=== PATIENT | male | born 1995 | race Caucasian/White ===

== ENCOUNTER 2019-02-26 18:19 | Emergency (ER) | payer OTHER ==
--- NOTE | 2019-02-26 19:36 | XRAY Report ---
Reason: R knee pain Procedure Date: 02/26/2019 Accession Number: [id number] / [id number] Procedure: XR - Knee 4 View RT CPT Code: FULL RESULT: EXAM: RIGHT KNEE RADIOGRAPHY EXAM DATE: 02/26/2019 07:17 PM. CLINICAL HISTORY: Right knee pain. COMPARISON: None. TECHNIQUE: 4 views. FINDINGS: Bones: Normal. No fracture or bone lesion. Joints: Normal. No effusion. No subluxation. Soft Tissues: Normal. No soft tissue swelling. IMPRESSION: Normal knee radiography. [facility]
[2019-02-26] MEDS ORDERED: IBUPROFEN 800 MG TABLET PO STA (20:36)
--- NOTE | 2019-02-26 20:38 | ED Physician Documentation ---
PD HPI LOWER EXT INJURY - Stated complaint Stated Complaint: R KNEE PX - Chief complaint Chief Complaint: Ext Problem - History obtained from History obtained from: Patient - History of Present Illness PD HPI LOW EXT INJURY LOCATION: Right, Knee Type of injury: Fall, Twist Where injury occurred: Street Timing - onset: How many days ago (2) Timing - duration: Days (2) Timing - details: Gradual onset Pain level max: 7 Pain level now: 6 Improved by: Rest, Ice, Immobilization Worsened by: Moving, Palpating Associated symptoms: Swelling. No: Weakness, Numbness, Tingling Contributing factors: No: Anticoagulated Recently seen: Not recently seen - Additional information Additional information: 23-year-old male with a history of patellar dislocations. States stepped in a pothole this weekend and right knee has been hurting ever since. Worse with walking, better with rest Review of Systems Constitutional: denies: Fever Skin: denies: Rash Musculoskeletal: denies: Neck pain, Back pain Neurologic: denies: Head injury PD PAST MEDICAL HISTORY - Past Medical History Past Medical History: No - Past Surgical History Past Surgical History: No - Present Medications Home Medications: Ambulatory Orders Medication Instructions Recorded Confirmed Ibuprofen [Motrin] 800 mg PO Q8H PRN #30 tablet 02/26/19 - Allergies Allergies/Adverse Reactions: Allergies Allergy/AdvReac Type Severity Reaction Status Date / Time Penicillins Allergy Hives Verified 02/26/19 18:35 - Social History Does the pt smoke?: No Smoking Status: Never smoker Does the pt drink ETOH?: Yes Does the pt have substance abuse?: No - Immunizations Immunizations are current?: Yes Immunizations: TDAP current <10years - POLST Patient has POLST: No PD ED PE NORMAL - Vitals Vital signs reviewed: Yes - General General: Alert and oriented X 3, No acute distress - Derm Derm: Warm and dry - Extremities Extremities: Other (R knee - Mild lateral knee tenderness. Mild LCL laxity. MCL, ACL, PCL intact. Unable to tolerate meniscus testing. Mild effusion. Neurovascular intact) - Neuro Neuro: Alert and oriented X 3 Results - Vitals Vitals: Oxygen O2 Source Room air - Rads (name of study) R knee xray Radiology: Prelim report reviewed, EMP read contemporaneously, See rad report (normal knee) PD MEDICAL DECISION MAKING - ED course Complexity details: reviewed results, re-evaluated patient, considered differential, d/w patient ED course: 23-year-old male with a right knee sprain. Placed in an articulating knee brace and given crutches. We will follow-up with PCP for further care. No acute findings on x-ray. Patient counseled regarding signs and symptoms for which I believe and urgent re-evaluation would be necessary. Patient with good understanding of and agreement to plan and is comfortable going home at this time This document was made in part using voice recognition software. While efforts are made to proofread this document, sound alike and grammatical errors may occur. Departure - Departure Disposition: Home, Self Care Clinical Impression: Right knee sprain Qualifiers: Encounter type: initial encounter Involved ligament of knee: unspecified ligament Qualified Code(s): S83.91XA - Sprain of unspecified site of right knee, initial encounter Knee LCL sprain Qualifiers: Encounter type: initial encounter Laterality: right Qualified Code(s): S83.421A - Sprain of lateral collateral ligament of right knee, initial encounter Condition: Good Instructions: ED Sprain Knee, ED Sprain Knee Collateral Ligaments Follow-Up: your,doctor in 1 week [Other] Prescriptions: Ibuprofen [Motrin] 800 mg PO Q8H PRN #30 tablet PRN Reason: PAIN &/OR FEVER Comments: Return if you worsen. Follow-up with your doctor for further care. Wear the brace until released. You may bear weight as tolerated. Forms: Activity restrictions Discharge Date/Time: 02/26/19 20:51
[2019-02-26 20:51] VITALS: BP 118/75
== END 2019-02-26 20:51 | disposition home or self-care (01) ==
LOC: ED 18:19
DX: S83.421A Sprain of lateral collateral ligament of right knee, initial encounter (principal); X50.1XXA Overexertion from prolonged static or awkward postures, initial encounter; Y93.01 Activity, walking, marching and hiking; Y92.410 Unspecified street and highway as the place of occurrence of the external cause
CPT/HCPCS: 73564; 99283; A9270

== ENCOUNTER 2019-03-01 08:14 | Outpatient (CLI) | payer OTHER ==
--- NOTE | 2019-03-01 15:26 | MRI Report ---
Reason: PAIN IN RIGHT KNEE Procedure Date: 03/01/2019 Accession Number: [id number] / [id number] Procedure: MRI - Knee RT W/O CPT Code: FULL RESULT: EXAM: RIGHT KNEE MRI WITHOUT CONTRAST EXAM DATE: 03/01/2019 09:15 AM. CLINICAL HISTORY: PAIN IN RIGHT KNEE. COMPARISON: 02/26/2019 right knee radiographs. TECHNIQUE: Multiplanar, multisequence T1-weighted and fluid-sensitive sequences of the knee without contrast. Other: None. FINDINGS: Bones: Focal marrow edema at the inferolateral margin of the patella without fracture. Faint marrow edema at the lateral margin of the lateral femoral condyle. Otherwise normal marrow signal. Articular Cartilage: Unremarkable. Medial Meniscus: The medial meniscus is intact. Lateral Meniscus: The lateral meniscus is intact. Cruciate Ligaments: The anterior and posterior cruciate ligaments are intact. Collateral Ligaments: The medial collateral and lateral collateral ligamentous structures are intact. Tendons: The quadriceps, patellar, semimembranosus, and popliteus tendons are unremarkable. Musculature: No edema or fatty atrophy. Other: No effusion. No popliteal cyst. No loose bodies. The medial and lateral retinacula are intact. The subcutaneous tissues and fat pads are unremarkable. IMPRESSION: Faint marrow edema at the inferolateral margin of the patella and lateral margin of the lateral femoral condyle, consistent with a history of patellar dislocation-relocation injury. The medial patellofemoral retinaculum and ligament are normal in appearance. Otherwise normal MRI of the knee. [facility]
== END 2019-03-01 08:15 | disposition home or self-care (01) ==
LOC: DI 08:14
PROVIDERS: ATTEND Nurse Practitioner Family
DX: M25.561 Pain in right knee (principal); R60.0 Localized edema

== ENCOUNTER 2019-04-24 15:29 | Emergency (ER) | payer OTHER ==
--- NOTE | 2019-04-24 16:20 | XRAY Report ---
Reason: prior dislocation, new injury Procedure Date: 04/24/2019 Accession Number: [id number] / [id number] Procedure: XR - Knee 4 View RT CPT Code: FULL RESULT: EXAM: RIGHT KNEE RADIOGRAPHY EXAM DATE: 04/24/2019 04:05 PM. CLINICAL HISTORY: Prior dislocation, new injury. COMPARISON: KNEE 4 VIEW RT 02/26/2019 7:09 PM. TECHNIQUE: 3 views. FINDINGS: Bones: Normal. No fractures or bone lesions. Joints: Normal. No effusion. No subluxations. Soft Tissues: Normal. No soft tissue swelling. IMPRESSION: Normal knee radiography. [facility]
--- NOTE | 2019-04-24 17:45 | ED Physician Documentation ---
PD HPI LOWER EXT INJURY - Stated complaint Stated Complaint: R KNEE PX - Chief complaint Chief Complaint: Trauma Ext - History obtained from History obtained from: Patient - History of Present Illness PD HPI LOW EXT INJURY LOCATION: Right, Knee Type of injury: Other (gave out while walking) Where injury occurred: Work Timing - onset: Today Timing - duration: Hours Timing - details: Abrupt onset, Now resolved Improved by: Rest, Immobilization Worsened by: Moving, Palpating Associated symptoms: No: Weakness, Numbness, Tingling, Swelling Contributing factors: No: Anticoagulated Similar symptoms before: Diagnosis (patellar dislocation) Recently seen: Clinic - Additional information Additional information: 31-year-old active [employer] 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 He states this is been happening 2-3 times per week. He has been placed into an immobilizer and onto crutches. When he is not wearing the immobilizer he has had issues. He has seen orthopedics he has had an MRI of his knee and surgical intervention is being considered. The patient was at work today when this incident happened and he was sent to medical who sent him here to the emergency department for further evaluation. Review of Systems Constitutional: denies: Fever Eyes: denies: Decreased vision Ears: denies: Ear pain Nose: denies: Congestion Throat: denies: Sore throat Cardiac: denies: Chest pain / pressure Respiratory: denies: Cough GI: denies: Vomiting PD PAST MEDICAL HISTORY - Past Surgical History Past Surgical History: No - Present Medications Home Medications: Ambulatory Orders Medication Instructions Recorded Confirmed Ibuprofen [Motrin] 800 mg PO Q8H PRN #30 tablet 02/26/19 - Allergies Allergies/Adverse Reactions: Allergies Allergy/AdvReac Type Severity Reaction Status Date / Time Penicillins Allergy Hives Verified 04/24/19 15:51 - Social History Does the pt smoke?: No Smoking Status: Never smoker Does the pt drink ETOH?: Yes Does the pt have substance abuse?: No - Immunizations Immunizations are current?: Yes Immunizations: TDAP current <10years - POLST Patient has POLST: No PD ED PE NORMAL - Vitals Vital signs reviewed: Yes (normal ) - General General: Alert and oriented X 3, No acute distress, Well developed/nourished - HEENT HEENT: Atraumatic, PERRL, EOMI - Respiratory Respiratory: No respiratory distress - Derm Derm: Normal color, Warm and dry, No rash - Extremities Extremities: No deformity, No edema, Other (The right knee is examined and there is no evidence of effusion and the ligaments appear stable to testing. Distal n/v is intact. There is some pain to ROM of the knee. 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, No motor deficit, No sensory deficit, Normal speech Eye Opening: Spontaneous Motor: Obeys Commands Verbal: Oriented GCS Score: 15 - Psych Psych: Normal mood, Normal affect Results - Vitals Vitals: Vital Signs - 24 hr 04/24/19 04/24/19 15:52 18:09 Temperature 36.6 C 37 C Heart Rate 86 64 Respiratory 17 18 Rate Blood Pressure 113/74 129/69 O2 Saturation 98 99 Oxygen O2 Source Room air - Rads (name of study) knee Radiology: Prelim report reviewed (Impression: normal knee radiography.), EMP read indepedently, See rad report PD MEDICAL DECISION MAKING - ED course Complexity details: reviewed old records, reviewed results, re-evaluated patient, considered differential, d/w patient, d/w family ED course: 23-year-old male [place] chronic [place] condition. He does have follow-up with orthopedics on the of this month. I have encouraged the patient to continue to wear his brace as recommended and to follow-up with orthopedics. He is given an additional 2 weeks of limited ambulation duty at work. Departure - Departure Disposition: 01 Home, Self Care Clinical Impression: Right knee sprain Qualifiers: Encounter type: initial encounter Involved ligament of knee: unspecified ligament Qualified Code(s): S83.91XA - Sprain of unspecified site of right knee, initial encounter Condition: Stable Instructions: ED Sprain Knee Follow-Up: SIMONE Dowd [Provider Group] Forms: Activity restrictions Discharge Date/Time: 04/24/19 18:09
[2019-04-24 18:09] VITALS: BP 129/69
== END 2019-04-24 18:09 | disposition home or self-care (01) ==
LOC: ED 15:29
DX: S83.91XA Sprain of unspecified site of right knee, initial encounter (principal); W18.30XA Fall on same level, unspecified, initial encounter; Y93.01 Activity, walking, marching and hiking; Y92.139 Unspecified place military base as the place of occurrence of the external cause; Y99.1 Military activity; Z87.828 Personal history of other (healed) physical injury and trauma
CPT/HCPCS: 99282; 99283

== ENCOUNTER 2019-10-04 12:38 | Emergency (ER) | payer OTHER ==
[2019-10-04 12:47] VITALS: BP 134/72
--- NOTE | 2019-10-04 13:42 | XRAY Report ---
Reason: R knee pain s/p fall Procedure Date: 10/04/2019 Accession Number: [id number] / [id number] Procedure: XR - Knee 4 View RT CPT Code: Final Report FULL RESULT: EXAM: RIGHT KNEE RADIOGRAPHY EXAM DATE: 10/04/2019 01:28 PM. CLINICAL HISTORY: R knee pain s/p fall. COMPARISON: OR C-ARM PROCEDURE 06/07/2019 9:14 AM KNEE 4 VIEW RT 04/24/2019 3:58 PM KNEE RT W/O 03/01/2019 8:57 AM. TECHNIQUE: 4 views. FINDINGS: Bones: There is a curvilinear calcification located medial to the superior aspect of the medial femoral condyle which was not seen on previous exam. Bony structures otherwise unremarkable noting findings of previous patellar surgery. Joints: Joint space and alignment appear satisfactory. No joint effusion. Soft Tissues: Otherwise unremarkable. IMPRESSION: 1. Linear calcification. Possible acute avulsion fracture versus posttraumatic soft tissue calcification adjacent to the superior aspect of the medial femoral condyle. New compared with 06/07/2019. 2. Otherwise negative. [facility]
--- NOTE | 2019-10-04 13:42 | ED Physician Documentation ---
PD HPI LOWER EXT INJURY - Stated complaint Stated Complaint: RT KNEE PX - Chief complaint Chief Complaint: Ext Problem - History obtained from History obtained from: Patient - History of Present Illness PD HPI LOW EXT INJURY LOCATION: Right, Knee Type of injury: Twist Where injury occurred: Home Timing - onset: How many hours ago (few), Today (this morning when getting dressed, felt a pop in front/lateral of left knee and has pain with walking left of patella, and some click feeling through the day. Had ACL repair and meniscal cleanup last fall.) Timing - duration: Hours Timing - details: Abrupt onset, Still present Worsened by: Moving, Other (walking) Associated symptoms: No: Weakness, Numbness, Swelling Contributing factors: Prior ortho surgery Review of Systems Skin: denies: Rash, Lesions Neurologic: denies: Focal weakness, Numbness PD PAST MEDICAL HISTORY - Past Medical History Cardiovascular: None Respiratory: None Endocrine/Autoimmune: None GI: None : None HEENT: None Musculoskeletal: Other Derm: None - Past Surgical History Past Surgical History: No - Present Medications Home Medications: Ambulatory Orders Medication Instructions Recorded Confirmed Ibuprofen [Motrin] 800 mg PO Q8H PRN #30 tablet 02/26/19 Acetaminophen [Tylenol] 650 mg PO Q6H PRN 05/31/19 05/31/19 Acetaminophen [Tylenol Extra 500 mg PO QID PRN #100 tablet 10/04/19 Strength] Naproxen 500 mg PO BID #20 tablet 10/04/19 - Allergies Allergies/Adverse Reactions: Allergies Allergy/AdvReac Type Severity Reaction Status Date / Time Penicillins Allergy Hives Verified 10/04/19 12:47 - Social History Does the pt smoke?: No Smoking Status: Never smoker Does the pt drink ETOH?: Yes Does the pt have substance abuse?: No - Immunizations Immunizations are current?: Yes Immunizations: TDAP current <10years - POLST Patient has POLST: No PD ED PE NORMAL - Vitals Vital signs reviewed: Yes - General General: Alert and oriented X 3, Well developed/nourished, Other (appears uncomfortable) - Derm Derm: Normal color, Warm and dry - Extremities Extremities: Other (no effusion noted of left knee. There is tenderness lateral/anterior to left of patella. He can extend fully without pain of patellar tendon. Lateral joint line itself not tender. ) - Neuro Neuro: No motor deficit, No sensory deficit Results - Vitals Vitals: Oxygen O2 Source Room air - Rads (name of study) left knee Radiology: Prelim report reviewed (calcification adjacent to medial femoral condyle, new since May 2019), See rad report PD MEDICAL DECISION MAKING - ED course Complexity details: reviewed results (small calcification medial near femoral condyle. This is not in area of pain/tenderness. ), considered differential (pain in back of knee and feels click. Consider strain vs loose meniscal piece. Does not seem like locked knee. ), d/w patient Departure - Departure Disposition: 01 Home, Self Care Clinical Impression: Knee strain Qualifiers: Encounter type: initial encounter Laterality: right Qualified Code(s): S86.911A - Strain of unspecified muscle(s) and tendon(s) at lower leg level, right leg, initial encounter Condition: Stable Record reviewed to determine appropriate education?: Yes Instructions: ED Sprain Knee Follow-Up: Guanakito Queen MD [Primary Care Provider] - Prescriptions: Acetaminophen [Tylenol Extra Strength] 500 mg PO QID PRN #100 tablet PRN Reason: Pain Naproxen 500 mg PO BID #20 tablet Comments: Use your hinged knee brace at home for the next 5 or 6 days. Follow-up with your orthopedist, call for an appointment. Use naproxen twice daily for the next 7 to 10 days. Add Tylenol 4 times a day if needed for pain. Your x-ray shows a small avulsion of bone, (calcification) that may be just a calcification healing in the area from your surgery or could represent an uprooting of bone from a sprain of the ligament. These would be treated with a knee brace and limited activity in the short-term. Forms: Activity restrictions Discharge Date/Time: 10/04/19 14:15
[2019-10-04] MEDS ORDERED: ACETAMINOPHEN 325 MG TABLET PO STA (14:01)
[2019-10-04] MEDS ORDERED: IBUPROFEN 600 MG TABLET PO STA (14:01)
== END 2019-10-04 14:15 | disposition home or self-care (01) ==
LOC: ED 12:38
DX: S83.91XA Sprain of unspecified site of right knee, initial encounter (principal); X50.1XXA Overexertion from prolonged static or awkward postures, initial encounter; Y92.009 Unspecified place in unspecified non-institutional (private) residence as the place of occurrence of the external cause
CPT/HCPCS: 73564; 99283; A9270